=== PATIENT | male | born 1950 | race Caucasian/White ===

== ENCOUNTER 2019-05-18 21:12 | Emergency (ER) | payer MEDICARE, OTHER ==
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
[2019-05-18 22:08] VITALS: BP 106/64; PULSE 60; O2SAT 98
== END 2019-05-18 22:13 | disposition home or self-care (01) ==
LOC: ED 21:12
DX: S61.011A Laceration without foreign body of right thumb without damage to nail, initial encounter (principal); M79.644 Pain in right finger(s); V19.3XXA Pedal cyclist (driver) (passenger) injured in unspecified nontraffic accident, initial encounter; Y93.55 Activity, bike riding; Y92.9 Unspecified place or not applicable; E11.9 Type 2 diabetes mellitus without complications; Z79.4 Long term (current) use of insulin; I10 Essential (primary) hypertension; Z79.899 Other long term (current) drug therapy
CPT/HCPCS: 99283

== ENCOUNTER 2019-08-03 09:30 | Day surgery (SDC) | payer MEDICARE, OTHER ==
[~2019-08-03 09:30] MED LIST: Ak-Dilate OPHTHALMIC*** 1.065 ML, Cyclogyl 1% OPHTH SOL 5 ML 1.065 ML, GATIFLOXACIN 0.5... OP ONE; Lactated Ringers 1,000 ML IV SCH; TETRACAINE 0.5% STERI-UNIT SOL OP ONE
[2019-08-03] MEDS ORDERED: Lactated Ringers 1,000 ML IV ONE (09:44)
[2019-08-03 09:56] VITALS: BP 114/61; PULSE 50; O2SAT 96
[2019-08-03] MEDS ORDERED: Versed 2 MG/2 ML Injection ONE (10:32)
[2019-08-03] MEDS ORDERED: SUBLIMAZE 100 MCG/2 ML ONE (10:32)
[2019-08-03] MEDS ORDERED: ACETAZOLAMIDE 250 MG TABLET PO SCH (11:00)
[2019-08-03] MEDS ORDERED: Epinephrine Preservative Free 1 MG/ML INTRAOP ONE (11:30)
[2019-08-03] MEDS ORDERED: Zofran 4 MG/2 ML VIAL IV PRN (11:30)
[2019-08-03] MEDS ORDERED: NON-FORMULARY ITEM OP ONE (11:30)
[2019-08-03] MEDS ORDERED: BSS 500 ML, Fortaz/Tazicef 1 GM** 0.2 G IO ONE ×2 (11:30)
[2019-08-03] MEDS ORDERED: LIDOCAINE HCL 1% 50 MG/5 ML VL PF IJ ONE (11:30)
[2019-08-03] MEDS ORDERED: BETADINE 5% OPHTHALMIC 30 ML OP ONE (11:30)
[2019-08-03 14:41] LABS: INR 1.14 (0.8-3.0); PROTIME 12.9 SECONDS (8.83-12.87)
--- NOTE | 2019-08-06 15:02 | PROG NOTE ---
DATE/TIME OF OPERATION: 08/03/2019 1055 DATE/TIME DICTATED: 08/06/2019 1333 PREOPERATIVE DIAGNOSIS: Senile cataract of left eye. POSTOPERATIVE DIAGNOSIS: Senile cataract of left eye. SURGEON: Shona Mckeon MD LIGHTING ENGINEER: None. OPERATION: Cataract extraction of left eye with an intraocular lens implant. STANDARD __X___ COMPLEX ANESTHESIA: MAC. ___X___ Monitored anesthesia care in combination with topical and intra-cameral anesthesia (because of the established specific risk of reflux, arrhythmias, or an anxiety attack associated with ocular manipulation as well as difficulty of the director traffic and planning to manage such potentially catastrophic events while simultaneously attempting to complete the surgical procedure, it was deemed necessary for the patient's safety to have an anesthesiologist or a nurse black studies professor present during the procedure whenever possible. The anesthesiologist or the nurse black studies professor was utilized to monitor and regulate the intravenous sedation of the patient, so the patient was cooperative, relaxed, and comfortable). Topical anesthesia using Tetracaine eye drops together with intra cameral anesthesia using Lidocaine 1% MPF. The nurse was utilized to monitor the patient. ANESTHESIA PROVIDER: Huseyin Goddard CRNA. COMPLICATIONS: None. BLOOD LOSS: None. INDICATIONS: The patient is undergoing cataract surgery in the hopes of eliminating the visual complaints and difficulty. PROCEDURE: After arriving at the facility's outpatient surgery area, an IV was started; the patient was given 5 mg of p.o. Versed. (If an anesthesia provider was not monitoring the patient) The patient was then given topical anesthetic Tetracaine eye drops. A cotton pellet was soaked into a solution of a combination of Zymaxid 0.5%, Angel-Synephrine 2.5% and Ocufen (other drops might have been substituted referenced in the patient's record). The pellet was inserted by the RN into the lower conjunctival cul-de-sac with a sterile forceps and left for 20 minutes. The pellet was then removed by the RN with a sterile forceps before taking the patient to the operating room. The preoperative area nurse identified the patient and marked the correct eye to be operated on. I identified the correct eye to be operated on and marked it appropriately in the outpatient surgery area. The patient was then taken into the operating room. Tetracaine eye drops were installed again in the correct eye. The eyelids and the lashes and the lid margins were scrubbed with Betadine solution. One drop of the diluted Betadine solution was placed in the conjunctival cul-de-sac for 45 seconds and then was irrigated. A drop of Tetracaine Gel was placed in the conjunctival cul-de-sac. The patient's forehead was taped to secure it during the procedure. The patient was monitored. The patient was then draped in the usual way for this procedure. An eye speculum was used to separate the eyelids. The eye was then fixated and a temporal 2.5 mm incision was made in the clear cornea temporally at the limbus. Through the incision, 0.25 cc of 1% non-preserved lidocaine was injected into the anterior chamber for intracameral anesthesia. The anterior chamber was then filled with viscoelastic. The pupil was small. I felt that it would be safer to mechanically dilate the pupil. A Malyugin ring was used at this point which dilated the pupil. That was removed at the end of the procedure prior to aspiration of the viscoelastic from the anterior chamber and posterior to the intraocular lens implant. The cataract had a great amount of cortical changes. That rendered seeing the anterior capsule difficult for a safe performance of an anterior capsulotomy. I injected an air bubble into the anterior chamber. I then injected 1 ML of vision blue solution into the anterior chamber. The vision blue solution was irrigated from the anterior chamber after 30 seconds. The anterior capsule was stained which facilitated performing the anterior capsulotomy safely. After that was completed, a cystotome was introduced into the anterior chamber and a round anterior capsulotomy was performed. The capsule was removed by a forceps. Hydrodissection was next carried utilizing a 25-gauge cannula and balanced salt solution to delineate the cortical material from the capsule and the nucleus from the cortical material. The nucleus was rotated freely into the capsular bag with no difficulty. The phaco tip of the Tim [employer] Phacoemulsifier was introduced into the anterior chamber and two grooves were made into the nucleus 90 degrees apart. Using two spatulas resulted into the nucleus being fractured into four quadrants. The phaco tip was then used to remove each quadrant of the nucleus. Viscoelastic was used during this process to protect the corneal endothelium. Once the entire nucleus was removed, the phaco tip then was removed and the irrigation tip was introduced into the eye and the cortex was removed. The posterior capsule was polished. It was noticed that there was a tear into the posterior capsule with few vitreous strands into the pupil plan. An anterior vitrectomy was performed. A 22.00 diopter, [id number], posterior chamber lens implant, was inspected and found to be grossly normal. The implant was inserted into the implant injector cartridge; Viscoelastic again was introduced into the anterior chamber, which filled the capsular bag. The implant injector's cartridge tip was placed at the limbal wound and the posterior chamber implant was released into the capsular bag and rotated appropriately. The implant was found to be into the capsular bag and it was centered. 0.2 ml of Tri-Moxi was introduced via 27 gauge cannula into the vitreous cavity through the ciliary processes. Viscoelastic was aspirated from the anterior chamber and posterior to the intraocular lens implant from the capsular bag using the irrigating tip. The anterior chamber was irrigated and filled with 5 cc antibiotic solution (500 cc of BSS plus 2 ml of Fortaz 100 mg/ml) ( if patient was not allergic to the medication). The lips of the corneal incision were hydrated using BSS solution. The anterior chamber was checked and found to be water tight. ___X___ One drop each of antibiotic, steroid and NSAID drops (refer to chart for drops used) were placed in the conjunctival cul-de-sac of the operated eye. Patient tolerated the procedure quite well and left the operating room in satisfactory condition. DISCHARGE SUMMARY: The patient was released in stable condition. The patient and those with the patient were given an instruction sheet as of how to care for the eye after surgery as well as counseling on any abnormal laboratory studies by the postoperative RN. The patient was also given an appointment card for follow-up in the office and is to call immediately for any difficulties including but not limited to pain in the eye, decreased vision, discharge from the eye, headache and or fever. DISCHARGE DIAGNOSIS: Pseudophakia of left eye.
== END 2019-08-03 12:35 | disposition home or self-care (01) ==
LOC: SDC 09:30
PROVIDERS: ATTEND Ophthalmology
DX: H25.812 Combined forms of age-related cataract, left eye (principal); E11.9 Type 2 diabetes mellitus without complications; I10 Essential (primary) hypertension; E78.00 Pure hypercholesterolemia, unspecified; E07.9 Disorder of thyroid, unspecified; Z79.899 Other long term (current) drug therapy; Z79.01 Long term (current) use of anticoagulants
CPT/HCPCS: 36415; 85610; 99100; C1780; J0171; J2001; J2250; J3010; A9270-GY

== ENCOUNTER 2019-08-25 16:58 | Emergency (ER) | payer MEDICARE, OTHER ==
[2019-08-25] MEDS ORDERED: Sodium Chloride 0.9% 1000 ML 1,000 ML IV SCH ×2 (17:15→17:30)
--- NOTE | 2019-08-25 17:15 | ERPHSYRPT ---
- History of Present Illness Time Seen by Provider: 08/25/19 17:20 Source: patient Exam Limitations: no limitations Physician History: Patient is a 69-year-old male presents to our ED for evaluation of possible stroke. Symptoms started last night. Patient states he felt unwell. well he felt his coordination was off somewhat. Today he observed a slight right-sided facial droop. No gross motor or sensory deficits of the extremities. No nausea or vomiting. No chest pain or shortness of breath. No trauma. Symptoms are mild to moderate in intensity. No specific worsening or improving factors. Patient otherwise healthy. He voices no other complaints at this time. Timing/Duration: today Severity: mild Modifying Factors: Improves With: nothing Associated Symptoms: denies symptoms Allergies/Adverse Reactions: No Known Drug Allergies Allergy (Verified 08/24/19 15:21) Home Medications: Metformin HCl 1000 mg [Glucophage 1000 MG] 1,000 mg PO BID 03/01/14 [History] Amlodipine Besylate 5 mg PO DAILY 05/18/19 [History] Potassium Chloride [Klor-Con M20] 20 meq PO DAILY 05/18/19 [History] Aspirin 81 mg PO DAILY 07/27/19 [History] Atorvastatin Calcium [Lipitor] 40 mg PO DAILY 07/27/19 [History] Carvedilol 12.5 mg [Coreg 12.5 mg] 12.5 mg PO BID 07/27/19 [History] Clopidogrel Bisulfate 75 mg [PLAVIX 75 MG Tablet] 75 mg PO DAILY 07/27/19 [History] Empagliflozin [Jardiance] 10 mg PO DAILY 07/27/19 [History] Ergocalciferol (Vitamin D2) [Vitamin D] 50,000 unit PO DAILY 07/27/19 [History] Furosemide [Lasix] 40 mg PO DAILY 07/27/19 [History] Insulin Glargine,Hum.rec.anlog [Basaglar Kwikpen U-100] 35 unit SQ HS 07/27/19 [History] Levothyroxine Sodium [Synthroid] 75 mcg PO DAILY 07/27/19 [History] Hx Tetanus, Diphtheria Vaccination/Date Given: No Hx Influenza Vaccination/Date Given: Yes (2013) Hx Pneumococcal Vaccination/Date Given: No - Review of Systems Constitutional: No Symptoms, No Fever, No Chills Eyes: No Symptoms Ears, Nose, & Throat: No Symptoms Respiratory: No Symptoms, No Cough, No Dyspnea Cardiac: No Symptoms, No Chest Pain, No Edema, No Syncope Abdominal/Gastrointestinal: No Symptoms, No Abdominal Pain, No Nausea, No Vomiting, No Diarrhea Genitourinary Symptoms: No Symptoms, No Dysuria Musculoskeletal: No Symptoms, No Back Pain, No Neck Pain Skin: No Symptoms, No Rash Neurological: No Symptoms, No Dizziness, No Focal Weakness, No Sensory Changes Psychological: No Symptoms Endocrine: No Symptoms Hematologic/Lymphatic: No Symptoms Immunological/Allergic: No Symptoms All Other Systems: Reviewed and Negative - Past Medical History Pertinent Past Medical History: Yes Neurological History: No Pertinent History, TIA ENT History: No Pertinent History, Cataracts Cardiac History: High Cholesterol, Hypertension Respiratory History: No Pertinent History Endocrine Medical History: Diabetes Type II, Hypothyroidism Musculoskeletal History: Arthritis GI Medical History: No Pertinent History History: No Pertinent History Psycho-Social History: No Pertinent History Male Reproductive Disorders: Prostate Problems - Past Surgical History Past Surgical History: Yes Neuro Surgical History: No Pertinent History, Other Cardiac: CABG, Other Respiratory: No Pertinent History Gastrointestinal: No Pertinent History Genitourinary: No Pertinent History Musculoskeletal: No Pertinent History Male Surgical History: No Pertinent History Other Surgical History: 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--2019 [facility] surgery,Left carotid surgery - Social History Smoking Status: Current every day smoker How long have you smoked: 40 years Exposure to second hand smoke: Yes Drug Use: none Patient Lives Alone: No - Nursing Vital Signs Nursing Vital Signs: Initial Vital Signs Temperature 103.1 F 08/25/19 17:13 Pulse Rate 79 08/25/19 17:13 Respiratory Rate 17 08/25/19 17:13 Blood Pressure 132/60 08/25/19 17:13 O2 Sat by Pulse Oximetry 94 L 08/25/19 17:13 Pain Scale Pain Intensity 0 - Physical Exam General Appearance: no apparent distress, alert Eye Exam: PERRL/EOMI, eyes nml inspection Ears, Nose, Throat Exam: normal ENT inspection, TMs normal, pharynx normal, moist mucous membranes Neck Exam: normal inspection, non-tender, supple, full range of motion Respiratory Exam: normal breath sounds, lungs clear, No respiratory distress Cardiovascular Exam: regular rate/rhythm, normal heart sounds, normal peripheral pulses Gastrointestinal/Abdomen Exam: soft, normal bowel sounds, No tenderness, No mass Back Exam: normal inspection, normal range of motion, No CVA tenderness, No vertebral tenderness Extremity Exam: normal inspection, normal range of motion, pelvis stable Neurologic Exam: alert, oriented x 3, cooperative, normal mood/affect, nml cer ebellar function, nml station & gait, sensation nml, No motor deficits Skin Exam: normal color, warm, dry, No rash Lymphatic Exam: No adenopathy SpO2 Interpretation: normal SpO2: 95 O2 Delivery: Room Air - Course Nursing assessment & vital signs reviewed: Yes EKG Interpreted by Me: RATE (78), NORMAL AXIS, NORMAL INTERVALS, NORMAL QRS - CT Exams Head CT Interpretation: Tele-radiologist Report (To [facility] nonacute aging brain.) Ordered Tests: Active Orders 24 hr Category Date Time Status Accucheck STAT Care 08/25/19 17:16 Completed Garage Door Service Technician STAT Care 08/25/19 17:11 Completed EKG-ER Only STAT Care 08/25/19 17:10 Completed IV Insertion STAT Care 08/25/19 17:10 Completed IV Insertion-2nd Peripheral STAT Care 08/25/19 17:28 Completed NPO (ED) STAT Care 08/25/19 17:16 Completed Pulse Oximetry (ED) STAT Care 08/25/19 17:10 Completed CHEST 1 VIEW (PORTABLE) Stat Exams 08/25/19 21:41 Taken HEAD WITHOUT CONTRAST [CT] Stat Exams 08/25/19 17:01 Completed BLOOD CULTURE Stat Lab 08/25/19 19:30 Received CBC W DIFF Stat Lab 08/25/19 17:15 Completed CMP Stat Lab 08/25/19 17:15 Completed Lactic Acid Stat Lab 08/25/19 17:20 Completed MAGNESIUM Stat Lab 08/25/19 17:15 Completed TROPONIN Q3H Lab 08/25/19 17:15 Completed TROPONIN Q3H Lab 08/25/19 19:30 Completed TROPONIN Q3H Lab 08/25/19 22:45 Completed UA W/RFX UR CULTURE Stat Lab 08/25/19 19:15 Completed Medication Summary Discontinued Medications Generic Name Dose Route Start Last Admin Trade Name Freq PRN Reason Stop Dose Admin Acetaminophen 975 mg 08/25/19 20:09 08/25/19 20:16 Tylenol 325 Mg PO 08/25/19 20:10 975 mg STAT ONE Administration Acetaminophen Confirm 08/25/19 20:10 Tylenol Extra Strength 500 Mg Administered 08/25/19 20:11 Dose 1,000 mg .ROUTE .STK-MED ONE Acetaminophen Confirm 08/25/19 20:11 Tylenol 325 Mg Administered 08/25/19 20:12 Dose 975 mg .ROUTE .STK-MED ONE Aspirin 324 mg 08/25/19 20:44 08/25/19 20:57 Baby Aspirin 81 Mg Chew PO 08/25/19 20:45 324 mg STAT ONE Administration Sodium Chloride 1,000 mls @ 50 mls/hr 08/25/19 17:15 08/25/19 17:29 Sodium Chloride 0.9% 1000 Ml IV 09/24/19 17:14 Not Given .Q20H MARIAH Sodium Chloride 1,000 mls @ 50 mls/hr 08/25/19 17:30 08/25/19 17:31 Sodium Chloride 0.9% 1000 Ml IV 09/24/19 17:29 50 mls/hr .Q20H MARIAH Administration Sodium Chloride Confirm 08/25/19 17:30 Sodium Chloride 0.9% 1000 Ml Administered 08/25/19 17:31 Dose 1,000 mls @ ud .ROUTE .STK-MED ONE Lab/Rad Data: Laboratory Result Diagrams 08/25/19 17:15 08/25/19 17:15 Laboratory Results 08/25/19 08/25/19 08/25/19 Range/Units 22:45 22:00 19:30 WBC (4.0-10.5) K/mm3 RBC (4.1-5.6) M/mm3 Hgb (12.5-18.0) gm/dl Hct (42-50) % MCV (78-100) fl MCH (26-32) pg MCHC (32-36) g/dl RDW (11.5-14.0) % Plt Count (150-450) K/mm3 MPV (7.5-11.0) fl Gran % (36.0-66.0) % Eos # (Auto) (0-0.5) Absolute Lymphs (auto) (1.0-4.6) Absolute Monos (auto) (0.0-1.3) Lymphocytes % (24.0-44.0) % Monocytes % (0.0-12.0) % Eosinophils % (0.00-5.0) % Basophils % (0.0-0.4) % Absolute Granulocytes (1.4-6.9) Basophils # (0-0.4) Sodium (137-145) mmol/L Potassium (3.5-5.1) mmol/L Chloride (98-107) mmol/L Carbon Dioxide (22-30) mmol/L Anion Gap (5-15) MEQ/L BUN (9-20) mg/dL Creatinine (0.66-1.25) mg/dL Estimated GFR ML/MIN Glucose (74-106) mg/dL Lactic Acid (0.4-2.0) Calcium (8.4-10.2) mg/dL Magnesium (1.6-2.3) mg/dL Total Bilirubin (0.2-1.3) mg/dL AST (17-59) U/L ALT (0-50) U/L Alkaline Phosphatase (38-126) U/L Troponin I 0.043 H* 0.040 H* (0.000-0.034) ng/mL Serum Total Protein (6.3-8.2) g/dL Albumin (3.5-5.0) g/dL Urine Color (YELLOW) Urine Appearance (CLEAR) Urine pH (5-6) Ur Specific Mclean (1.005-1.025) Urine Protein (Negative) Urine Ketones (NEGATIVE) Urine Blood (0-5) Homero/ul Urine Nitrite (NEGATIVE) Urine Bilirubin (NEGATIVE) Urine Urobilinogen (0-1) mg/dL Ur Leukocyte Esterase (NEGATIVE) Urine WBC (Auto) (0-5) /HPF Urine RBC (Auto) (0-2) /HPF U Epithel Cells (Auto) (FEW) /HPF Urine Bacteria (Auto) (NEGATIVE) /HPF Urine Mucus (Auto) (NEGATIVE) /HPF Urine Culture Reflexed (NO) Urine Glucose (NEGATIVE) mg/dL SARS-CoV-2 (PCR) NEGATIVE (NEGATIVE) 08/25/19 08/25/19 08/25/19 Range/Units 19:15 17:20 17:15 WBC (4.0-10.5) K/mm3 RBC (4.1-5.6) M/mm3 Hgb (12.5-18.0) gm/dl Hct (42-50) % MCV (78-100) fl MCH (26-32) pg MCHC (32-36) g/dl RDW (11.5-14.0) % Plt Count (150-450) K/mm3 MPV (7.5-11.0) fl Gran % (36.0-66.0) % Eos # (Auto) (0-0.5) Absolute Lymphs (auto) (1.0-4.6) Absolute Monos (auto) (0.0-1.3) Lymphocytes % (24.0-44.0) % Monocytes % (0.0-12.0) % Eosinophils % (0.00-5.0) % Basophils % (0.0-0.4) % Absolute Granulocytes (1.4-6.9) Basophils # (0-0.4) Sodium (137-145) mmol/L Potassium (3.5-5.1) mmol/L Chloride (98-107) mmol/L Carbon Dioxide (22-30) mmol/L Anion Gap (5-15) MEQ/L BUN (9-20) mg/dL Creatinine (0.66-1.25) mg/dL Estimated GFR ML/MIN Glucose (74-106) mg/dL Lactic Acid 1.6 (0.4-2.0) Calcium (8.4-10.2) mg/dL Magnesium (1.6-2.3) mg/dL Total Bilirubin (0.2-1.3) mg/dL AST (17-59) U/L ALT (0-50) U/L Alkaline Phosphatase (38-126) U/L Troponin I 0.037 H* (0.000-0.034) ng/mL Serum Total Protein (6.3-8.2) g/dL Albumin (3.5-5.0) g/dL Urine Color YELLOW (YELLOW) Urine Appearance SLIGHTLY CLOUDY (CLEAR) Urine pH 5.0 (5-6) Ur Specific Mclean 1.021 (1.005-1.025) Urine Protein 30 (Negative) Urine Ketones NEGATIVE (NEGATIVE) Urine Blood MODERATE (0-5) Homero/ul Urine Nitrite NEGATIVE (NEGATIVE) Urine Bilirubin NEGATIVE (NEGATIVE) Urine Urobilinogen NEGATIVE (0-1) mg/dL Ur Leukocyte Esterase NEGATIVE (NEGATIVE) Urine WBC (Auto) NONE (0-5) /HPF Urine RBC (Auto) NONE (0-2) /HPF U Epithel Cells (Auto) NONE (FEW) /HPF Urine Bacteria (Auto) NONE (NEGATIVE) /HPF Urine Mucus (Auto) SLIGHT (NEGATIVE) /HPF Urine Culture Reflexed NO (NO) Urine Glucose >=500 (NEGATIVE) mg/dL SARS-CoV-2 (PCR) (NEGATIVE) 08/25/19 08/25/19 Range/Units 17:15 17:15 WBC 8.4 (4.0-10.5) K/mm3 RBC 3.75 L (4.1-5.6) M/mm3 Hgb 11.6 L (12.5-18.0) gm/dl Hct 34.4 L (42-50) % MCV 91.7 (78-100) fl MCH 30.9 (26-32) pg MCHC 33.7 (32-36) g/dl RDW 13.0 (11.5-14.0) % Plt Count 178 (150-450) K/mm3 MPV 9.6 (7.5-11.0) fl Gran % 79.6 H (36.0-66.0) % Eos # (Auto) 0 (0-0.5) Absolute Lymphs (auto) 0.69 L (1.0-4.6) Absolute Monos (auto) 1.02 (0.0-1.3) Lymphocytes % 8.2 L (24.0-44.0) % Monocytes % 12.1 H (0.0-12.0) % Eosinophils % 0.0 (0.00-5.0) % Basophils % 0.1 (0.0-0.4) % Absolute Granulocytes 6.72 (1.4-6.9) Basophils # 0.01 (0-0.4) Sodium 132 L (137-145) mmol/L Potassium 3.2 L (3.5-5.1) mmol/L Chloride 97 L (98-107) mmol/L Carbon Dioxide 23 (22-30) mmol/L Anion Gap 15.1 H (5-15) MEQ/L BUN 36 H (9-20) mg/dL Creatinine 1.83 H (0.66-1.25) mg/dL Estimated GFR 39.0 ML/MIN Glucose 179 H (74-106) mg/dL Lactic Acid (0.4-2.0) Calcium 8.4 (8.4-10.2) mg/dL Magnesium 1.8 (1.6-2.3) mg/dL Total Bilirubin 0.70 (0.2-1.3) mg/dL AST 38 (17-59) U/L ALT 32 (0-50) U/L Alkaline Phosphatase 108 (38-126) U/L Troponin I (0.000-0.034) ng/mL Serum Total Protein 7.0 (6.3-8.2) g/dL Albumin 3.8 (3.5-5.0) g/dL Urine Color (YELLOW) Urine Appearance (CLEAR) Urine pH (5-6) Ur Specific Mclean (1.005-1.025) Urine Protein (Negative) Urine Ketones (NEGATIVE) Urine Blood (0-5) Homero/ul Urine Nitrite (NEGATIVE) Urine Bilirubin (NEGATIVE) Urine Urobilinogen (0-1) mg/dL Ur Leukocyte Esterase (NEGATIVE) Urine WBC (Auto) (0-5) /HPF Urine RBC (Auto) (0-2) /HPF U Epithel Cells (Auto) (FEW) /HPF Urine Bacteria (Auto) (NEGATIVE) /HPF Urine Mucus (Auto) (NEGATIVE) /HPF Urine Culture Reflexed (NO) Urine Glucose (NEGATIVE) mg/dL SARS-CoV-2 (PCR) (NEGATIVE) - Progress Progress: improved Progress Note: Patient reassessed. Vitals WNL. Troponin marginally elevated off baseline. Patient has no chest pain. No short of breath. We discussed the possibility of an LP due to fever and neuro symptoms and patient declined. Patient's da ughters at the bedside. She also declined the LP. Aspirin administered. IV fluids administered. Fever defervesced. Blood cultures obtained. Rapid COVID negative. Case discussed with Dr. Boudreaux who felt patient would be better served at [facility] in light of his complicated cardiac history and elevated troponin./Patient his aemt is on staff at [facility]. Familypatient agreed and requested [facility] transfer. Chest x-ray reveals a pneumonitis. However lungs are clear. No leukocytosis. Plan of care discussed with patient and family. They agreed to transfer to [facility] for further evaluation and treatment. Case discussed with Dr. Huggins who accepted transfer. 07/09/20 00:[address] Other (Case discussed with Dr. Huggins of [facility] who accepts transfer. ) Counseled pt/family regarding: lab results, diagnosis, rad results - Departure Departure Disposition: Transfer Clinical Impression: TIA (transient ischemic attack), Elevated troponin, Chronic renal insufficiency, Dehydration, Fever, Hematuria, Proteinuria, Hypokalemic alkalosis Condition: Stable Critical Care Time: Yes Critical Care Time(excluding separately billable procedures): Critical 75-104 mins Referrals: AVELINA PANDYA MD [Primary Care Provider] -
--- NOTE | 2019-08-25 17:16 | XRAY ---
Indication: Stroke. Multiple contiguous axial images obtained through the head without contrast. Comparison: March 01, 2014. Continued age-appropriate global atrophy. No acute intracranial hemorrhage, abnormal extra-axial fluid collection, or mass effect. Fourth ventricle is midline without hydrocephalus. Mckeon-white matter differentiation preserved. Bony calvarium intact. Visualized paranasal sinuses and mastoid air cells are clear. Impression: Continued nonacute aging brain. Follow up CT or MRI may yield further information if there remains clinical concern.
[2019-08-25 17:25] LABS: Absolute Neutrophil Ct (ANC) 6.72 (1.4-6.9); BASOPHIL % 0.1 % (0.0-0.4); Basophil (Absolute #) 0.01 (0-0.4); Eosinophil (Absolute #) 0 (0-0.5); Hematocrit 34.4 % (42-50); Hemoglobin 11.6 gm/dl (12.5-18.0); Lymphocyte (Absolute #) 0.69 (1.0-4.6); Lymphocytes % 8.2 % (24.0-44.0); Mean Cell Volume 91.7 fl (78-100); Mean Corpuscular Hemoglobin 30.9 pg (26-32); Mean Corpuscular Hgb Concent. 33.7 g/dl (32-36); Mean Platelet Volume 9.6 fl (7.5-11.0); Monocyte (Absolute #) 1.02 (0.0-1.3); Monocytes % 12.1 % (0.0-12.0); Neutrophil % 79.6 % (36.0-66.0); Platelet Count 178 K/mm3 (150-450); Red Blood Count 3.75 M/mm3 (4.1-5.6); White Blood Count 8.4 K/mm3 (4.0-10.5)
[2019-08-25] MEDS ORDERED: Sodium Chloride 0.9% 1000 ML 1,000 ML ONE (17:30)
[2019-08-25 17:44] LABS: ALBUMIN 3.8 g/dL (3.5-5.0); ANION GAP 15.1 MEQ/L (5-15); BILIRUBIN,TOTAL 0.7 mg/dL (0.2-1.3); Calcium 8.4 mg/dL (8.4-10.2); Creatinine 1 1.83 mg/dL (0.66-1.25); MAGNESIUM 1.8 mg/dL (1.6-2.3); Potassium 3.2 mmol/L (3.5-5.1)
[2019-08-25 19:21] LABS: Appearance SLIGHTLY CLOUDY (CLEAR); Bilirubin NEGATIVE (NEGATIVE); Blood MODERATE Ery/ul (0-5); Glucose >=500 mg/dL (NEGATIVE); Ketones NEGATIVE (NEGATIVE); Leukocyte Esterase NEGATIVE (NEGATIVE); Mucus SLIGHT /HPF (NEGATIVE); Nitrite NEGATIVE (NEGATIVE); Protein,Urine Dip 30 (Negative); Specific Gravity 1.021 (1.005-1.025); Urobilinogen NEGATIVE mg/dL (0-1)
[2019-08-25] MEDS ORDERED: TYLENOL 325 MG PO ONE (20:09)
[2019-08-25] MEDS ORDERED: TYLENOL EXTRA STRENGTH 500 MG ONE (20:10)
[2019-08-25] MEDS ORDERED: TYLENOL 325 MG ONE (20:11)
[2019-08-25] MEDS ORDERED: BABY ASPIRIN 81 MG CHEW PO ONE (20:44)
[2019-08-25 22:25] VITALS: BP 96/53; PULSE 62
[2019-08-26 00:20] VITALS: O2SAT 95
--- NOTE | 2019-08-26 09:09 | XRAY ---
Indication: Fever. Comparison: None Portable chest demonstrates left lower lobe infiltrate versus atelectasis. Remaining heart and lungs unremarkable with incidental CABG surgery. Bony thorax intact with mild degenerative changes. Impression: Left lower lobe infiltrate/atelectasis. Comment: Preliminary interpretation was made by [facility]. No critical discrepancy.
== END 2019-08-25 23:36 | disposition short-term general hospital (02) ==
LOC: ED 16:58
DX: G54.9 Nerve root and plexus disorder, unspecified (principal); R74.9 Abnormal serum enzyme level, unspecified; I12.9 Hypertensive chronic kidney disease with stage 1 through stage 4 chronic kidney disease, or unspecified chronic kidney disease; N18.9 Chronic kidney disease, unspecified; E86.0 Dehydration; R50.9 Fever, unspecified; E11.9 Type 2 diabetes mellitus without complications; R31.9 Hematuria, unspecified; E03.9 Hypothyroidism, unspecified; E78.00 Pure hypercholesterolemia, unspecified; Z72.0 Tobacco use; R80.9 Proteinuria, unspecified; E87.6 Hypokalemia; E87.3 Alkalosis
CPT/HCPCS: 36000; 36415; 70450; 71045; 80053; 81001; 82962; 83605; 83735; 84484; 85025; 87040; 93005; 93041; 94760; 96360; 96361; 99285; U0003; A9270-GY

== ENCOUNTER 2019-09-07 08:01 | Day surgery (SDC) | payer MEDICARE, OTHER ==
[~2019-09-07 08:01] MED LIST changes: +Lactated Ringers 1,000 ML IV ONE; +NON-FORMULARY ITEM OP ONE; +cefUROXime sodium 0.005 GM in Sodium Chloride Flush 30 ML*** 0.5 ML IJ SCH
[2019-09-07] MEDS ORDERED: ACETAZOLAMIDE 250 MG TABLET PO ONE (09:00)
[2019-09-07] MEDS ORDERED: Zofran 4 MG/2 ML VIAL IV PRN (09:00)
[2019-09-07 09:40] LABS: INR 1.18 (0.8-3.0); PROTIME 13.3 SECONDS (8.83-12.87)
[2019-09-07] MEDS ORDERED: DIPRIVAN 200 MG/20 ML IV ONE (09:56)
[2019-09-07] MEDS ORDERED: Ketamine HCl 50 MG/ML ONE (09:56)
[2019-09-07 11:06] VITALS: BP 132/72; PULSE 54; O2SAT 97
[2019-09-07] MEDS ORDERED: LIDOCAINE HCL 1% 50 MG/5 ML VL PF IJ ONE (14:00)
[2019-09-07] MEDS ORDERED: BETADINE 5% OPHTHALMIC 30 ML OP ONE (14:00)
[2019-09-07] MEDS ORDERED: Epinephrine Preservative Free 1 MG/ML INTRAOP ONE (14:00)
--- NOTE | 2019-09-08 07:46 | OP ---
DATE/TIME OF OPERATION: 09/07/2019 0958 TIME DICTATED: 1435 PREOPERATIVE DIAGNOSIS: Senile cataract of right eye. POSTOPERATIVE DIAGNOSIS: Senile cataract of right eye. SURGEON: Shona Mckeon MD COAL CONVEYOR OPERATOR: None. OPERATION: Cataract extraction of right eye with an intraocular lens implant. STANDARD __X___ COMPLEX ANESTHESIA: MAC. ___X___ Monitored anesthesia care in combination with topical and intra-cameral anesthesia (because of the established specific risk of reflux, arrhythmias, or an anxiety attack associated with ocular manipulation as well as difficulty of the laboratory chemist to manage such potentially catastrophic events while simultaneously attempting to complete the surgical procedure, it was deemed necessary for the patient's safety to have an anesthesiologist or a nurse housing inspector present during the procedure whenever possible. The anesthesiologist or the nurse housing inspector was utilized to monitor and regulate the intravenous sedation of the patient, so the patient was cooperative, relaxed, and comfortable). Topical anesthesia using Tetracaine eye drops together with intra cameral anesthesia using Lidocaine 1% MPF. The nurse was utilized to monitor the patient. ANESTHESIA PROVIDER: Huseyin Goddard CRNA. COMPLICATIONS: None. BLOOD LOSS: None. INDICATIONS: The patient is undergoing cataract surgery in the hopes of eliminating the visual complaints and difficulty. PROCEDURE: After arriving at the facility's outpatient surgery area, an IV was started; the patient was given 5 mg of p.o. Versed. (If an anesthesia provider was not monitoring the patient) The patient was then given topical anesthetic Tetracaine eye drops. A cotton pellet was soaked into a solution of a combination of Zymaxid 0.5%, Angel-Synephrine 2.5% and Ocufen (other drops might have been substituted referenced in the patient's record). The pellet was inserted by the RN into the lower conjunctival cul-de-sac with a sterile forceps and left for 20 minutes. The pellet was then removed by the RN with a sterile forceps before taking the patient to the operating room. The preoperative area nurse identified the patient and marked the correct eye to be operated on. I identified the correct eye to be operated on and marked it appropriately in the outpatient surgery area. The patient was then taken into the operating room. Tetracaine eye drops were installed again in the correct eye. The eyelids and the lashes and the lid margins were scrubbed with Betadine solution. One drop of the diluted Betadine solution was placed in the conjunctival cul-de-sac for 45 seconds and then was irrigated. A drop of Tetracaine Gel was placed in the conjunctival cul-de-sac. The patient's forehead was taped to secure it during the procedure. The patient was monitored. The patient was then draped in the usual way for this procedure. An eye speculum was used to separate the eyelids. The eye was then fixated and a temporal 2.5 mm incision was made in the clear cornea temporally at the limbus. Through the incision, 0.25 cc of 1% non-preserved lidocaine was injected into the anterior chamber for intracameral anesthesia. The anterior chamber was then filled with viscoelastic. The pupil was small. I felt that it would be safer to mechanically dilate the pupil. A Malyugin ring was used at this point which dilated the pupil. That was removed at the end of the procedure prior to aspiration of the viscoelastic from the anterior chamber and posterior to the intraocular lens implant. The cataract had a great amount of cortical changes. That rendered seeing the anterior capsule difficult for a safe performance of an anterior capsulotomy. I injected an air bubble into the anterior chamber. I then injected 1 ML of vision blue solution into the anterior chamber. The vision blue solution was irrigated from the anterior chamber after 30 seconds. The anterior capsule was stained which facilitated performing the anterior capsulotomy safely. After that was completed, a cystotome was introduced into the anterior chamber and a round anterior capsulotomy was performed. The capsule was removed by a forceps. Hydrodissection was next carried utilizing a 25-gauge cannula and balanced salt solution to delineate the cortical material from the capsule and the nucleus from the cortical material. The nucleus was rotated freely into the capsular bag with no difficulty. The phaco tip of the Tim [employer] Phacoemulsifier was introduced into the anterior chamber and two grooves were made into the nucleus 90 degrees apart. Using two spatulas resulted into the nucleus being fractured into four quadrants. The phaco tip was then used to remove each quadrant of the nucleus. Viscoelastic was used during this process to protect the corneal endothelium. Once the entire nucleus was removed, the phaco tip then was removed and the irrigation tip was introduced into the eye and the cortex was removed. The posterior capsule was polished. It was noticed that there was a tear into the posterior capsule with few vitreous strands into the pupil plan. An anterior vitrectomy was performed. A 21.50 diopter, [id number], posterior chamber lens implant, was inspected and found to be grossly normal. The implant was inserted into the implant injector cartridge; Viscoelastic again was introduced into the anterior chamber, which filled the capsular bag. The implant injector's cartridge tip was placed at the limbal wound and the posterior chamber implant was released into the capsular bag and rotated appropriately. The implant was found to be into the capsular bag and it was centered. 0.2 ml of Tri-Moxi was introduced via 27 gauge cannula into the vitreous cavity through the ciliary processes. Viscoelastic was aspirated from the anterior chamber and posterior to the intraocular lens implant from the capsular bag using the irrigating tip. The anterior chamber was irrigated and filled with 5 cc antibiotic solution (500 cc of BSS plus 2 ml of Fortaz 100 mg/ml) ( if patient was not allergic to the medication). The lips of the corneal incision were hydrated using BSS solution. The anterior chamber was checked and found to be water tight. ___X__ One drop each of antibiotic, steroid and NSAID drops (refer to chart for drops used) were placed in the conjunctival cul-de-sac of the operated eye. Patient tolerated the procedure quite well and left the operating room in satisfactory condition. NOTE: 10.1 cc containing 1 mg of cefuroxime was introduced into the anterior chamber at the end of the cataract procedure. DISCHARGE SUMMARY: The patient was released in stable condition. The patient and those with the patient were given an instruction sheet as of how to care for the eye after surgery as well as counseling on any abnormal laboratory studies by the postoperative RN. The patient was also given an appointment card for follow-up in the office and is to call immediately for any difficulties including but not limited to pain in the eye, decreased vision, discharge from the eye, headache and or fever. DISCHARGE DIAGNOSIS: Pseudophakia of right eye.
== END 2019-09-07 11:10 | disposition home or self-care (01) ==
LOC: SDC 08:01
PROVIDERS: ATTEND Ophthalmology
DX: H25.811 Combined forms of age-related cataract, right eye (principal); E11.9 Type 2 diabetes mellitus without complications; I10 Essential (primary) hypertension; E78.00 Pure hypercholesterolemia, unspecified; I51.9 Heart disease, unspecified; E07.9 Disorder of thyroid, unspecified; Z79.899 Other long term (current) drug therapy; Z79.01 Long term (current) use of anticoagulants
CPT/HCPCS: 36415; 82962; 85610; 85730; 99100; C1780; J0171; J2001; J2704; A9270-GY

== ENCOUNTER 2021-09-15 12:29 | Emergency (ER) | payer MEDICARE, OTHER ==
[2021-09-15 12:36] VITALS: BP 143/71; PULSE 68; O2SAT 98
--- NOTE | 2021-09-15 12:46 | ERPHSYRPT ---
- History of Present Illness Time Seen by Provider: 09/15/21 12:40 Source: patient Exam Limitations: no limitations Patient Subjective Stated Complaint: Pt states "I am not sure what happened but my elbow is huge." Triage Nursing Assessment: Pt presented alert and oriented X 3, skin pwd Pt ambulates with an upright steady gait, able to speak in clear full sentences pt in no apparent respiratory distress. Pt right elbow swollen and non tender. Physician History: Patient is 71-year-old male came to the emergency room with sudden swelling of his right elbow. He states that he suddenly developed right elbow swelling, he denies any injury. He just feels little bit tight elbow but otherwise denies any other pain or any other restricted mobility. He never have this type of problem before. Occurred: just prior to arrival Method of Injury: unknown Severity of Pain-Max: none Severity of Pain-Current: none Extremities Pain Location: elbow: right (cyst) Modifying Factors: Improves With: nothing Associated Symptoms: none Allergies/Adverse Reactions: No Known Drug Allergies Allergy (Verified 09/07/19 08:18) Home Medications: Metformin HCl 1000 mg [Glucophage 1000 MG] 1,000 mg PO BID 03/01/14 [History] Amlodipine Besylate 5 mg PO DAILY 05/18/19 [History] Potassium Chloride [Klor-Con M20] 20 meq PO DAILY 05/18/19 [History] Aspirin 81 mg PO DAILY 07/27/19 [History] Atorvastatin Calcium [Lipitor] 40 mg PO DAILY 07/27/19 [History] Carvedilol 12.5 mg [Coreg 12.5 mg] 6.25 mg PO BID 07/27/19 [History] Clopidogrel Bisulfate [PLAVIX Tablet] 75 mg PO DAILY 07/27/19 [History] Empagliflozin [Jardiance] 10 mg PO DAILY 07/27/19 [History] Ergocalciferol (Vitamin D2) [Vitamin D] 50,000 unit PO DAILY 07/27/19 [History] Furosemide [Lasix] 40 mg PO DAILY 07/27/19 [History] Insulin Glargine,Hum.rec.anlog [Basaglar Kwikpen U-100] 35 unit SQ HS 07/27/19 [History] Levothyroxine Sodium [Synthroid] 75 mcg PO DAILY 07/27/19 [History] Hx Tetanus, Diphtheria Vaccination/Date Given: No Hx Influenza Vaccination/Date Given: Yes (2013) Hx Pneumococcal Vaccination/Date Given: No Immunizations Up to Date: Yes Travel Risk - International Travel Have you traveled outside of the country in past 3 weeks: No - Coronavirus Screening Are you exhibiting any of the following symptoms?: No Close contact with a COVID-19 positive Pt in past 14-21 Days: No - Vaccine Status Have you recieved a Covid-19 vaccination: Yes [employer] - Vaccination Dates Date of 2cond Vaccination (if applicable): 2020 - Review of Systems Constitutional: No Symptoms Eyes: No Symptoms Ears, Nose, & Throat: No Symptoms Respiratory: No Symptoms Cardiac: No Symptoms Abdominal/Gastrointestinal: No Symptoms Genitourinary Symptoms: No Symptoms Musculoskeletal: Other (right elbow cyst) - Past Medical History Pertinent Past Medical History: Yes Neurological History: No Pertinent History, TIA ENT History: Cataracts Cardiac History: High Cholesterol, Hypertension Respiratory History: No Pertinent History Endocrine Medical History: Diabetes Type II, Hypothyroidism Musculoskeletal History: No Pertinent History GI Medical History: No Pertinent History History: No Pertinent History Psycho-Social History: No Pertinent History Male Reproductive Disorders: Prostate Problems Other Medical History: In [facility] in august 2019 for dehydration symptoms - Past Surgical History Past Surgical History: Yes Neuro Surgical History: No Pertinent History, Other Cardiac: CABG, Other Respiratory: No Pertinent History Gastrointestinal: No Pertinent History Genitourinary: No Pertinent History Musculoskeletal: No Pertinent History Male Surgical History: No Pertinent History Other Surgical History: 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--2019 [facility] surgery,Left carotid surgery - Social History Smoking Status: Current every day smoker How long have you smoked: 40 years Exposure to second hand smoke: Yes Drug Use: none Patient Lives Alone: No - Nursing Vital Signs Nursing Vital Signs: Initial Vital Signs Temperature 97.2 F 09/15/21 12:32 Pulse Rate 68 09/15/21 12:32 Respiratory Rate 20 09/15/21 12:32 Blood Pressure 143/71 09/15/21 12:32 O2 Sat by Pulse Oximetry 98 09/15/21 12:32 Pain Scale Pain Intensity 0 - Physical Exam General Appearance: no apparent distress Eyes, Ears, Nose, Throat Exam: normal ENT inspection Neck Exam: normal inspection Cardiovascular/Respiratory Exam: chest non-tender Abdominal Exam: non-tender Back Exam: normal inspection Shoulder Exam: normal inspection Elbow/Forearm Exam: swelling (right elbow cyst) Hand Exam: normal inspection Neuro/Tendon Exam: normal sensation, normal motor functions, normal tendon functions, no evidence tendon injury Mental Status Exam: alert, oriented x 3 Skin Exam: normal color SpO2 Interpretation: normal SpO2: 98 O2 Delivery: Room Air - Course Nursing assessment & vital signs reviewed: Yes - Progress Progress: unchanged Progress Note: 09/15/21 12:44 I talked to the patient and explained him about elbow cyst and explained him that it may disappear within few hours or by tomorrow morning or it may get little bit bigger. Drainage option is discussed but I also advised him that with the needle drainage there might be constant leakage from that area and chances of infection are the. At this point of time I advised him to just observe and advised to put ice pack. If it gets larger and started having a pain advised to come back to the emergency room or advised to go to the primary care physician and get it drained. Verbalize instruction understood. Counseled pt/family regarding: diagnosis, need for follow-up - Departure Departure Disposition: Home Clinical Impression: Other bursal cyst, right elbow Condition: Stable Critical Care Time: No Referrals: AVELINA PANDYA MD [Primary Care Provider] - Follow up/PCP as directed Additional Instructions: Please applied ice pack on your cyst area. It may disappear within the next 24 hours. You can keep a close eye on it and if it gets bigger either come to the emergency room or go and see your primary care physician who can drain it. Discharge/Care Plan KETURAH DAVIS was seen on 09/15/21 in the Emergency Room. The patient was counseled regarding Diagnosis, need for follow up and when to return to the Emergency Room. Prescriptions given: Discharge Note I have spoken with the patient and/or caregivers. I have explained the patient's condition, diagnosis and treatment plan based on the information available to me at this time. I have answered the patient's and/or caregiver's questions and addressed any concerns. The patient and/or caregivers have as good understanding of the patient's diagnosis, condition and treatment plan as can be expected at this point. The vital signs have been stable. The patient's condition is stable and appropriate for discharge from the emergency department. The patient will pursue further outpatient evaluation with the primary care physician or other designated or consulting physician as outlined in the discharge instructions. The patient and/or caregivers are agreeable to this plan of care and follow-up instructions have been explained in detail. The patient and/or caregivers have received these instruction. The patient/and or caregivers are aware that any significant change in condition or worsening of symptoms should prompt an immediate return to this or the closest emergency department or call 911.
== END 2021-09-15 12:55 | disposition home or self-care (01) ==
LOC: ED 12:29
DX: M71.321 Other bursal cyst, right elbow (principal); E78.5 Hyperlipidemia, unspecified; I10 Essential (primary) hypertension; E11.9 Type 2 diabetes mellitus without complications; Z72.0 Tobacco use; Z79.02 Long term (current) use of antithrombotics/antiplatelets; Z79.4 Long term (current) use of insulin; Z79.84 Long term (current) use of oral hypoglycemic drugs; Z79.899 Other long term (current) drug therapy
CPT/HCPCS: 99281

== ENCOUNTER 2024-01-02 09:48 | Emergency (ER) | payer MEDICARE, OTHER | END 2024-01-02 10:50 | disposition left against medical advice (07) | LOC: ED 09:48 | DX: Z53.21 Procedure and treatment not carried out due to patient leaving prior to being seen by health care provider (principal) ==

== ENCOUNTER 2024-01-02 14:10 | Emergency (ER) | payer MEDICARE, OTHER ==
[2024-01-02 14:33] VITALS: TEMP 97.8
[2024-01-02] MEDS ORDERED: ARZOL Silver Nitrate Applicator TP ONE ×2 (14:35→16:02)
--- NOTE | 2024-01-02 15:19 | ERPHSYRPT ---
- History of Present Illness Time Seen by Provider: 01/02/24 14:14 Source: patient Exam Limitations: no limitations Patient Subjective Stated Complaint: Pt reports he had basal cell carcinoma removed by Dr Raimundo Ivan out [facility] [place] from bottom lip on Friday12/31/23. Yesterday he took the bandage off and it has been bleeding since. He was instructed to come to ER if he couldn't get bleeding to stop. Triage Nursing Assessment: Pt alert and oriented x3. Respirations easy/nonlabored. Skin w/p/d. Ambulated to ED cot without difficulty. Incision to bottom lip actively bleeding. Swelling to bottom lip minimal. Physician History: 73-year-old male on Plavix presented in the ER with complaint of lower lip bleeding. Patient has basal cell carcinoma excision done by Dr. Ivan out of [place] on 12/30, took off his bandage yesterday and since then having slow oozing. Patient denies any pain. He has applied firm pressure, ice at home with no significant relief. Lower lip raw area with minimal oozing. Cauterization of lower lip time 2:45 PM. Silver nitrate cauterization is done with hemostasis secured. Observed in the ER for more than 30 minutes with no rebleeding. Recommended keeping it moist and outpatient follow-up with his primary surgeon. Discussed signs symptoms of worsening needing return to ER which she seems understanding. Stable for discharge. Allergies/Adverse Reactions: No Known Drug Allergies Allergy (Verified 01/02/24 14:17) Home Medications: Amlodipine Besylate 5 mg PO DAILY 05/18/19 [History] Potassium Chloride [Klor-Con M20] 20 meq PO DAILY 05/18/19 [History] Aspirin 81 mg PO DAILY 07/27/19 [History] Atorvastatin Calcium [Lipitor] 40 mg PO DAILY 07/27/19 [History] Carvedilol 12.5 mg [Coreg 12.5 mg] 6.25 mg PO BID 07/27/19 [History] Clopidogrel Bisulfate [PLAVIX Tablet] 75 mg PO DAILY 07/27/19 [History] Furosemide [Lasix] 40 mg PO DAILY 07/27/19 [History] Insulin Glargine,Hum.rec.anlog [Basaglar Kwikpen U-100] 35 unit SQ HS 07/27/19 [History] Levothyroxine Sodium [Synthroid] 75 mcg PO DAILY 07/27/19 [History] Insulin Lispro [Humalog] See Rx Instructions .ROUTE .COMPLEX 01/02/24 [History] Hx Tetanus, Diphtheria Vaccination/Date Given: Yes Hx Influenza Vaccination/Date Given: No Hx Pneumococcal Vaccination/Date Given: No Travel Risk - International Travel Have you traveled outside of the country in past 3 weeks: No - Emerging Infectious Disease Are you exhibiting symptoms associated with any current EIDs: No - Review of Systems Constitutional: No Symptoms Eyes: No Symptoms Ears, Nose, & Throat: Other (Lip bleeding) Respiratory: No Symptoms Cardiac: No Symptoms Abdominal/Gastrointestinal: No Symptoms Neurological: No Symptoms Immunological/Allergic: No Symptoms - Past Medical History Pertinent Past Medical History: Yes Neurological History: No Pertinent History, TIA ENT History: Cataracts Cardiac History: High Cholesterol, Hypertension Respiratory History: No Pertinent History Endocrine Medical History: Diabetes Type II, Hypothyroidism Musculoskeletal History: No Pertinent History GI Medical History: No Pertinent History History: No Pertinent History Psycho-Social History: No Pertinent History Male Reproductive Disorders: Prostate Problems Other Medical History: In [facility] in august 2019 for dehydration symptoms - Past Surgical History Past Surgical History: Yes Neuro Surgical History: No Pertinent History, Other Cardiac: CABG, Other Respiratory: No Pertinent History Gastrointestinal: No Pertinent History Genitourinary: No Pertinent History Musculoskeletal: No Pertinent History Male Surgical History: No Pertinent History Other Surgical History: 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--2019 [facility] surgery,Left carotid surgery, basal cell carcinoma removed from bilat sides of lower lip - Social History Smoking Status: Current every day smoker How long have you smoked: 40 years Exposure to second hand smoke: Yes Drug Use: none Patient Lives Alone: No - Social Determinants of Health Will the patient participate in the screening: Declined to provide - Nursing Vital Signs Nursing Vital Signs: Initial Vital Signs Temperature 97.8 F 01/02/24 14:17 Pulse Rate 61 01/02/24 14:17 Respiratory Rate 16 01/02/24 14:17 Blood Pressure 126/77 01/02/24 14:17 O2 Sat by Pulse Oximetry 96 01/02/24 14:17 Pain Scale Pain Intensity 2 - Physical Exam General Appearance: no apparent distress Eye Exam: PERRL/EOMI Ears, Nose, Throat Exam: TMs normal, pharynx normal, other (Lower lip raw area with slow oozing) Neck Exam: normal inspection, non-tender, supple, full range of motion Respiratory Exam: normal breath sounds, lungs clear Cardiovascular Exam: regular rate/rhythm, normal heart sounds Neurologic Exam: alert, oriented x 3, cooperative Skin Exam: normal color SpO2 Interpretation: normal SpO2: 96 O2 Delivery: Room Air Procedures - Additional Procedures Progress: Cauterization of lower lip time 2:45 PM. Silver nitrate cauterization is done with hemostasis secured. Ordered Tests: Medication Summary Discontinued Medications Generic Name Dose Route Start Last Admin Trade Name Sharon PRN Reason Stop Dose Admin Silver Nitrate Confirm 01/02/24 14:35 Silver Nitrate 1 Pkt Each Administered 01/02/24 14:36 Dose 1 pkt TP .STK-MED ONE - Progress Progress Note: 01/02/24 15:17 73-year-old male on Plavix presented in the ER with complaint of lower lip bleeding. Patient has basal cell carcinoma excision done by Dr. Ivan out of [place] on 12/30, took off his bandage yesterday and since then having slow oozing. Patient denies any pain. He has applied firm pressure, ice at home with no significant relief. Lower lip raw area with minimal oozing. Cauterization of lower lip time 2:45 PM. Silver nitrate cauterization is done with hemostasis secured. Observed in the ER for more than 30 minutes with no rebleeding. Recommended keeping it moist and outpatient follow-up with his primary surgeon. Discussed signs symptoms of worsening needing return to ER which she seems understanding. Stable for discharge. Medical Desision Making - Diagnostic Testing Diagnostic test were ordered, analyzed, and reviewed by me: No - Risk of complications The pt has a mod risk of morbidity or mortality based on: Need for minor surgical intervention in patient with know risk factors - Departure Departure Disposition: Home Clinical Impression: Lip cancer, Skin hemorrhage Condition: Stable Critical Care Time: No Referrals: STAN SANTIAGO MD [Primary Care Provider] - Follow up with PCP 1 day Instructions: Wound Care (DC) Additional Instructions: Follow-up with primary care and Dr. Ivan for reevaluation in 1 to 2 days. Keep it clean and moist. Intermittent ice application. Take Tylenol as needed. Return to ER for any worsening.
[2024-01-02] MEDS ORDERED: BACIGUENT PACKET ONE (16:05)
[2024-01-02 16:11] VITALS: BP 148/75; RESP 17; O2SAT 97
[2024-01-02 16:13] VITALS: PULSE 70
[2024-01-05] MEDS ORDERED: ARZOL Silver Nitrate Applicator TP SCH ×2 (15:00→15:02)
[2024-01-05] MEDS: ARZOL Silver Nitrate Applicator TP ONE (17:43)
== END 2024-01-02 16:08 | disposition home or self-care (01) ==
LOC: ED 14:10
DX: L76.22 Postprocedural hemorrhage of skin and subcutaneous tissue following other procedure (principal); C44.01 Basal cell carcinoma of skin of lip
CPT/HCPCS: 99282; A9270-GY

== ENCOUNTER 2024-09-15 05:57 | Day surgery (SDC) | payer MEDICARE, OTHER ==
[2024-09-15] MEDS ORDERED: propofoL IV ONE ×2 (07:30→07:52)
[2024-09-15 08:14] VITALS: RESP 16
[2024-09-15 08:19] VITALS: TEMP 97.2
[2024-09-15 08:40] VITALS: BP 132/80; PULSE 64; O2SAT 98
--- NOTE | 2024-09-16 10:40 | OP ---
SURGERY DATE/TIME: 09/15/2024 [id number] PREOPERATIVE DIAGNOSES: 1) Screening colonoscopy. 2) History of colon polyps. POSTOPERATIVE DIAGNOSIS: Colon polyps x5. PROCEDURE: Colonoscopy. SURGEON: Jesse Boudreaux MD. ANESTHESIA: MAC by Diego Blackburn CRNA. ESTIMATED BLOOD LOSS: Minimal. SPECIMENS: There is a hot forceps polypectomy from the cecum, hepatic flexure, sigmoid colon, and distal sigmoid colon x2. DESCRIPTION OF PROCEDURE AND FINDINGS: After informed written consent was obtained, the patient was taken to the endoscopy suite. He was placed in the left lateral decubitus position, and then anesthesia was titrated to desired level of consciousness. Digital rectal exam showed normal sphincter tone and no internal lesions. The scope was inserted into the rectum and sequentially the entire colonic mucosa was traversed. Level of the cecum was reached and verified with direct visualization of the ileocecal valve. There was a small polyp in the cecum just proximal to the valve which was grasped with a forceps, cauterized and removed in its entirety and sent for pathology report. Upon withdrawal, there was another small polyp at the hepatic flexure which was likewise grasped with the forceps, cauterized, and removed in its entirety. Upon withdrawal in the proximal sigmoid colon, there was another small polyp which was grasped with the forceps, cauterized, and removed in its entirety. All of these areas were hemostatic following removal. Upon further withdrawal, the distal sigmoid near the rectosigmoid junction, there were 2 small sessile polyps in close proximity. Both were grasped with a forceps, cauterized and removed in their entirety, and sent in the same specimen container. Prior to withdrawal, retroflexion was performed and showed no internal lesions. Scope was removed, and patient was transferred to the recovery room in good condition.
== END 2024-09-15 08:42 | disposition home or self-care (01) ==
LOC: SDC 05:57
PROVIDERS: ATTEND Family Medicine
DX: Z12.11 Encounter for screening for malignant neoplasm of colon (principal); Z09 Encounter for follow-up examination after completed treatment for conditions other than malignant neoplasm; Z86.0100 Personal history of colon polyps, unspecified; E11.9 Type 2 diabetes mellitus without complications; D12.0 Benign neoplasm of cecum; D12.4 Benign neoplasm of descending colon; D12.3 Benign neoplasm of transverse colon